=== PATIENT | female | born 1940 | race Caucasian/White ===

== ENCOUNTER 2019-03-16 07:44 | Observation (INO) ==
[2019-03-16 08:07] LABS: BUN/Creatinine Ratio 24.5 (9.0-21.6); Blood Urea Nitrogen 46 mg/dL (3-23); Calcium * 8.7 mg/dL (7.9-10.9); Carbon Dioxide 22.7 mmol/L (24-32.6); Chloride 88 mmol/L (97-106); Glucose * 115 mg/dL (70-110); Potassium 4.7 mmol/L (3.4-4.6); Sodium 123 mmol/L (132-142)
[2019-03-18] MEDS: NORMAL SALINE 1,000 ML IV PRN (17:36)
--- NOTE | 2019-03-18 20:09 | HP ---
Chief Complaint - Chief Complaint Date of Service: 03/18/19 Time of Service: 19:30 Chief Complaint: Weakness, edema, atrial fib with RVR, hyponatremia History of Present Illness: Mrs. Reyes is a new patient to me whom I saw first on Saturday. She has significant nonpitting edema in her lower extremities. She and her report that she has been losing weight and has been anorexic. She has a history of alcohol abuse that was long-standing. She has not had any alcohol in about 2 weeks and has not had any withdrawal symptoms. Her office laboratory work initially showed her sodium was 125 but her chest x-ray showed pulmonary vascular congestion with pulmonary effusions consistent with congestive heart failure. I diuresed her with 40 mg of furosemide daily for 4 days. Her EGFR dropped from 56-28. There was no change in her edema appearance and in fact her weight in the office actually went up some. The acute kidney injury is no doubt due to the diuresis attempt. I have brought her in to give her some IV fluids. She is in atrial fib with RVR. I am concerned that she may have an abdominal malignancy but cannot give her IV contrast because of her renal status. I will get a CT scan tomorrow without IV contrast but with oral contrast. Medical History (Updated 03/17/19 @ 17:33 by Papo Quezada DO) Hepatic failure (Acute) The liver enzymes have been elevated with transaminases and alkaline phosphatase being high. The bilirubin is normal. Hepatic ultrasound shows a homogenous textured liver. Giving her history of alcohol abuse I would expected nodular cirrhosis but it is not apparent on ultrasound. No tumors or metastatic findings are present on ultrasound. MI (acute kidney injury) (Acute) 4 days ago the EGFR was 52 and is now 28. I did start her on furosemide 40 mg p.o. daily 4 days ago. Her sodium has dropped from 125-123. She has anasarca with nonpitting edema below the knees. Potassium is 4.7. Surprisingly her total protein and serum albumin levels are normal. The CBC is normal and there is no anemia. Edema due to congestive heart failure (Acute) CHF NYHA class II (symptoms with moderately strenuous activities) (Acute) Atrial fibrillation with RVR (Acute) Edema (Acute) Vitamin D deficiency (Chronic) Hypothyroidism (Chronic) Hyperlipemia (Chronic) Hypertensive crisis (Acute) CHF (congestive heart failure) (Chronic) CAD (coronary artery disease) (Chronic) History of myocardial infarction (Chronic) Hypertension (Chronic) Non-compliant patient per dr [facility] Surgical History: Surgical History (Updated 03/11/19 @ 10:50 by Marleni Rae LPN) Coronary angioplasty status History of heart artery stent Family History: Family History (Updated 03/11/19 @ 10:41 by Marleni Rae LPN) Mother Unknown family medical history Obesity Father , age 86 Old age Other Family history non-contributory Social History: (Last Reviewed 03/18/19 @ 19:03 by Sammi Higgins RN) Social History: Marital status: household members: spouse current occupational status: retired Highest education level completed: 10th grade Tobacco: Smoking Status: Never smoker Alcohol: alcohol intake: never Alcohol type: wine alcohol intake frequency: holiday/special occasion Substance Use: substance use type: does not use Dietary Habits: caffeine: Yes Pets: pets and animals: dog(s) Review Of Systems (GEN) - Review of Systems Generalized/Overall Review: Present: Weakness, Malaise, Fatigue, Weight loss EENTM: Present: No Symptoms Reported Respiratory: Present: Shortness of Breath - With exertion Cardiac: Present: No Symptoms Reported Abdominal: Present: Nausea, Abdominal Pain, Other Genitourinary: Present: No Symptoms Reported - Anorexia Musculoskeletal: Present: No Symptoms Reported Neurological: Present: Weakness Skin: Present: No Symptoms Reported Endocrine: Present: No Symptoms Reported, Intolerance to Cold Immunizations: IMMUNIZATION HX Immunizations Up to Date Yes History of Influenza Vaccine No Hx Pneumococcal Vaccination More Information Required Allergies/Adverse Reactions: Allergies Allergy/AdvReac Type Severity Reaction Status Date / Time No Known Allergies Allergy Verified 03/17/19 16:04 Home Medications: HOME MEDICATIONS aspirin 81 mg tablet,delayed release 81 mg PO DAILY 03/11/19 [Last Taken Unknown] atorvastatin 80 mg tablet 80 mg PO DAILY #90 tab 03/11/19 [Last Taken Unknown] clopidogrel 75 mg tablet 75 mg PO DAILY #90 tab 03/11/19 [Last Taken Unknown] furosemide 40 mg tablet 40 mg PO DAILY #30 tab 03/11/19 [Last Taken Unknown] losartan 50 mg tablet 50 mg PO DAILY #90 tab 03/11/19 [Last Taken Unknown] metoprolol tartrate 25 mg tablet 50 mg PO BID #90 tab 03/11/19 [Last Taken Unknown] Exam - Exam Vital Signs: Vital Signs - Last Taken Temp 36.4 C 03/18/19 18:51 Pulse 134 H 03/18/19 18:51 Resp 18 03/18/19 18:51 BP 119/74 03/18/19 18:51 Pulse Ox 100 03/18/19 18:51 Constitutional: Present: Alert, Oriented x3, Cooperative, Well developed, Well nourished, Mild distress ENT Exam: Present: normal ENT inspection Eye Exam: bilateral eye: normal inspection, PERRL, EOMI Neck: Present: non-tender, full range of motion, supple Back Exam: Present: normal inspection, no CVA tenderness, no vertebral tenderness Breasts: Present: Exam deferred Respiratory: Present: rales, No wheezing Cardiovascular/Chest: Present: tachycardia, irregularly irregular Peripheral Pulses: carotid (R): 2+, carotid (L): 2+, radial (R): 2+, radial (L): 2+ Abdomen: Present: Normal bowel sounds, soft, nondistended, tender - Left lower quadrant /Rectal: Present: Exam deferred Extremity: Present: lower extremity edema - Nonpitting, swelling Skin Exam: Present: normal color, warm/dry, no cyanosis Lymphatic: Present: no adenopathy Neurologic: Present: enterprise software developer II-XII nml as tested Appearance: Present: appropriate appearance, appropriate insight, neat, impaired insight Eye contact: Present: cooperative, good eye contact, normal speech Thoughts: Present: normal thought pattern, no apparent hallucination Diagnostic Studies: Laboratory Results Sodium 123 mmol/L (132-142) L 03/16/19 07:48 123 mmol/L (130-142) L 03/16/19 07:48 Potassium 4.7 mmol/L (3.4-4.6) H D 03/16/19 07:48 Chloride 88 mmol/L (97-106) L 03/16/19 07:48 Carbon Dioxide 22.7 mmol/L (24-32.6) L 03/16/19 07:48 17.0 mmol/L (6.8-13.8) H 03/16/19 07:48 BUN 46 mg/dL (3-23) H D 03/16/19 07:48 1.88 mg/dL (0.4-1.4) H D 03/16/19 07:48 Est GFR (Non-Af Amer) 28 mL/min (60-130) L D 03/16/19 07:48 24.5 (9.0-21.6) H 03/16/19 07:48 115 mg/dL (70-110) H 03/16/19 07:48 Calcium 8.7 mg/dL (7.9-10.9) 03/16/19 07:48 Assessment/Plan - Narrative Narrative: 1. Rehydrate gradually through the night and recheck lab tomorrow morning to see if the MI is reversed. 2. CT of the abdomen with oral contrast only tomorrow morning 3. Start Lanoxin IV 0.25 mg twice 1 dose now and repeat at 2 AM 4. Continue home meds including metoprolol 50 mg twice daily 5. Echocardiogram tomorrow - Assessment/Plan (1) Hyponatremia Problem: Acute (2) MI (acute kidney injury) Problem: Acute (3) Atrial fibrillation with RVR Problem: Acute (4) Edema Problem: Acute Qualifiers: Edema type: generalized Qualified Code(s): R60.1 - Generalized edema (5) CHF (congestive heart failure) Problem: Chronic Qualifiers: Heart failure type: high output Qualified Code(s): I50.83 - High output heart failure
[2019-03-18] MEDS: METOPROLOL TARTRATE 25 MG TABLET PO SCH (20:41)
[2019-03-18] MEDS: DIGOXIN 0.25 MG/ML AMPUL IV SCH (20:41)
[2019-03-19] MEDS: NORMAL SALINE 1,000 ML IV PRN ×2 (00:50→11:25)
[2019-03-19] MEDS ORDERED: DIGOXIN 0.25 MG/ML AMPUL IV ONE (02:00)
[2019-03-19] MEDS: DIGOXIN 0.25 MG/ML AMPUL IV SCH ×3 (02:25→17:21)
[2019-03-19] MEDS ORDERED: DIATRIZOATE MEGLUMINE, SODIUM 30 ML BTL PO ONE (05:29)
[2019-03-19 05:39] LABS: Hematocrit 42.4 % (37.0-47.0); Mean Cell Volume 99.8 fl (78-100); Mean Corpuscular Hemoglobin 32.9 pg (27-31); Mean Platelet Volume 10.9 fl (8-12.5); Neutrophil # 5.5 K/mm3 (1.3-6.0); Neutrophil % 65.2 % (42-75.0); Platelet Count 159 K/mm3 (150-450); Red Blood Count 4.25 M/mm3 (4.2-5.4); Red Cell Distribution Width 15.4 % (11.5-14.0); White Blood Count 8.4 K/mm3 (4.0-10.5)
[2019-03-19 06:02] LABS: BUN/Creatinine Ratio 27.2 (9.0-21.6); Carbon Dioxide 23.4 mmol/L (24-32.6); Potassium 4.2 mmol/L (3.4-4.6)
[2019-03-19 06:03] LABS: Anion Gap 15.8 mmol/L (6.8-13.8); Bilirubin, Total 2.3 mg/dL (0.0-1.1); Ca. Corrected For Albumin 8.7 mg/dL (8.4-10.2); Calcium * 8.2 mg/dL (7.9-10.9); Total Protein 5.6 gm/dL (6.2-8.2)
[2019-03-19] MEDS: ASPIRIN 81 MG TABLET.DR PO SCH (09:04)
[2019-03-19] MEDS: LOSARTAN POTASSIUM 50 MG TABLET PO SCH (09:05)
[2019-03-19] MEDS: CLOPIDOGREL BISULFATE 75 MG TABLET PO SCH (09:05)
[2019-03-19] MEDS: METOPROLOL TARTRATE 25 MG TABLET PO SCH (09:08)
--- NOTE | 2019-03-19 15:26 | ECHO ---
This report is available in the EMR
--- NOTE | 2019-03-19 16:31 | PN ---
Subjective - Date and Time Seen Date: 03/19/19 Time: 07:45 Subjective Narrative: Jacklyn has had an uneventful night. Her heart rate is responded nicely to Lanoxin. She has had 2 doses. The first dose was at 8 PM and the second and was at 2 AM. Heart rate is down into the 90s to 110 range this morning. Her sodium is improved and is up to 128. Plan is to continue IV normal saline. She is scheduled for a CT of the abdomen with oral contrast only had an echocar diogram today. She will have repeat labs done tomorrow morning. Also kidney function has improved with EGFR up from 28 yesterday -46 today. Objective - Review of Systems Generalized/Overall Review: Reports: Weakness, Malaise, Fatigue, Weight loss EENTM: Reports: No Symptoms Reported Respiratory: Reports: No Symptoms Reported Cardiac: Reports: No Symptoms Reported Abdominal: Reports: No Symptoms Reported Genitourinary Symptoms: Reports: No Symptoms Reported Musculoskeletal Complaints: Reports: No Symptoms Reported Neurological: Reports: No Symptoms Reported Skin: Reports: No Symptoms Reported Endocrine: Reports: No Symptoms Reported - Vitals Vitals: Last Vital Signs Temp 36.3 C 03/19/19 10:47 Pulse 107 H 03/19/19 10:47 Resp 18 03/19/19 10:47 BP 99/52 03/19/19 10:47 Pulse Ox 96 03/19/19 10:47 - Abnormal Lab Findings Abnormal Lab Findings: Abnormal Lab Results 03/19/19 03/19/19 Range/Units 05:35 05:35 MCH 32.9 H (27-31) pg RDW 15.4 H (11.5-14.0) % Immature Gran % (Auto) 0.60 H (0.001-0.429) % Immature Gran # (Auto) 0.05 H (0.000-0.0310) K/mm3 Monocytes % 10.5 H (0.0-9) % Sodium 128 L (132-142) mmol/L Plasma Sodium 128 L (130-142) mmol/L Chloride 93 L (97-106) mmol/L Carbon Dioxide 23.4 L (24-32.6) mmol/L Anion Gap 15.8 H (6.8-13.8) mmol/L BUN 31 H (3-23) mg/dL Est GFR (Non-Af Amer) 49 L D (60-130) mL/min BUN/Creatinine Ratio 27.2 H (9.0-21.6) Total Bilirubin 2.3 H (0.0-1.1) mg/dL AST 160 H (0-48) U/L ALT 831 H (19-67) U/L Alkaline Phosphatase 178 H (50-170) U/L Total Protein 5.6 L (6.2-8.2) gm/dL Albumin 3.0 L (3.4-5.0) gm/dl - EKG/Xray Findings EKG: atrial fibrillation EKG read: Interp. by me Interpretation: Reviewed by me - Exam Constitutional: Present: Alert, Oriented x3, Cooperative, Well developed, Well nourished, Mild distress ENT Exam: Present: normal ENT inspection, hearing grossly normal, pharynx normal, TMs normal Neck: Present: non-tender, limited range of motion Breasts: Present: Exam deferred Respiratory: Present: chest non-tender, lungs clear, normal breath sounds, no respiratory distress Cardiovascular/Chest: Present: tachycardia, irregularly irregular Abdomen: Present: Normal bowel sounds, soft, tender. Absent: mass palpable /Rectal: Present: Exam deferred Extremity: Present: lower extremity edema Skin Exam: Present: normal color, warm/dry, no cyanosis Lymphatic: Present: no adenopathy Neurologic: Present: resin remover II-XII nml as tested, no motor/sensory deficits, alert, normal mood/affect, oriented x 3 Appearance: Present: appropriate appearance, appropriate insight, neat, impaired insight, impaired recent memory Eye contact: Present: cooperative, good eye contact, normal speech Thoughts: Present: normal thought pattern, no apparent hallucination Assessment/Plan Plan Narrative: 1. Hyponatremia 2. Atrial fibrillation with rapid ventricular response 3. Congestive heart failure 4. Edema Plan 1. Echocardiogram today 2. CT abdomen with oral contrast only. 3. Change to p.o. Lanoxin 0.125 mg daily 4. Order dig level for tomorrow morning as well as other morning lab. 5. Anticipate discharge tomorrow. - Problems/Diagnosis (1) Hyponatremia Problem: Resolved (2) MI (acute kidney injury) Problem: Chronic (3) Atrial fibrillation with RVR Problem: Chronic (4) Edema Problem: Chronic Qualifiers: Edema type: generalized Qualified Code(s): R60.1 - Generalized edema (5) CHF (congestive heart failure) Problem: Chronic Qualifiers: Heart failure type: diastolic Heart failure chronicity: acute on chronic (6) Pancreatic mass Problem: Acute (7) CHF (congestive heart failure) Problem: Acute Qualifiers: Heart failure type: diastolic Heart failure chronicity: acute Qualified Code(s): I50.31 - Acute diastolic (congestive) heart failure
[2019-03-19] MEDS: DIGOXIN 0.125 MG TABLET PO SCH (17:19)
[2019-03-19 17:28] LABS: Urine Bilirubin Negative (NEGATIVE); Urine Blood 25 /ul (NEGATIVE); Urine Ketone Negative (NEGATIVE); Urine Nitrite Negative (NEGATIVE); Urine Protein Negative (NEGATIVE); Urine Urobilinogen Normal (NORMAL)
[2019-03-19 17:45] LABS: Urine Appearance Clear (CLEAR); Urine Bacteria 1+; Urine Color Yellow; Urine RBC 0-5 /hpf (0-5); Urine WBC 0-5 /hpf (0-5)
[2019-03-19] MEDS: CARVEDILOL 6.25 MG TABLET PO SCH (20:52)
[2019-03-19] MEDS ORDERED: METOPROLOL TARTRATE 50 MG TABLET PO SCH (21:00)
[2019-03-20 05:32] LABS: Hematocrit 44.7 % (37.0-47.0); Hemoglobin 14.5 gm/dL (12.5-16.0); Mean Cell Volume 100.2 fl (78-100); Mean Corpuscular Hemoglobin 32.5 pg (27-31); Mean Corpuscular Hgb Conc 32.4 g/dl (32-36); Mean Platelet Volume 10.8 fl (8-12.5); Neutrophil # 5.5 K/mm3 (1.3-6.0); Neutrophil % 70.4 % (42-75.0); Platelet Count 156 K/mm3 (150-450); Red Blood Count 4.46 M/mm3 (4.2-5.4); Red Cell Distribution Width 15.6 % (11.5-14.0); White Blood Count 7.9 K/mm3 (4.0-10.5)
[2019-03-20 06:06] LABS: Anion Gap 17.4 mmol/L (6.8-13.8); BUN/Creatinine Ratio 24.2 (9.0-21.6); Ca. Corrected For Albumin 8.7 mg/dL (8.4-10.2); Calcium * 8.2 mg/dL (7.9-10.9); Carbon Dioxide 24.5 mmol/L (24-32.6); Digoxin 1.7 ng/mL (0.5-2.0); Potassium 3.9 mmol/L (3.4-4.6); Total Protein 5.8 gm/dL (6.2-8.2)
--- NOTE | 2019-03-20 08:14 | DS ---
(1) Hyponatremia Problem: Resolved (2) MI (acute kidney injury) Problem: Chronic (3) Atrial fibrillation with RVR Problem: Chronic (4) Edema Problem: Chronic Qualifiers: Edema type: generalized Qualified Code(s): R60.1 - Generalized edema (5) CHF (congestive heart failure) Problem: Chronic Qualifiers: Heart failure type: diastolic Heart failure chronicity: acute on chronic (6) Pancreatic mass Problem: Acute Date of Discharge:: 03/20/19 Description of Stay: Jacklyn Reyes is a 78-year-old female who is new to me. She presented to the office with weakness and a lot of edema. She had dyspnea with exertion but not at rest. Her examination revealed that she was in atrial fibrillation with RVR with distended neck veins and a positive HJR at 90 degrees. She had nonpitting edema to the thighs bilaterally. Her heart rate in the office was about 150 bpm. I started her on oral furosemide 40 mg daily. She took 4 doses and then came back to the office and was not improved. Her EGFR had dropped from 46-28 and she had actually gained weight in the interim. So she had an acute kidney injury from the brief use of diuretics. I elected to admit her to the hospital. She received 1 L of normal saline at bolus rate and then continued at 125 cc/h thereafter until last evening when I saline lock the IV and DC the IV fluids. Her sodium has increased from 123 08/29/1935 this morning. Her lungs are clear and she does not have tachypnea. She remains in atrial fibrillation with mild RVR with heart rate in the 100-1 05 range. Her blood pressure has been satisfactory. 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 There does not appear to be any ischemic cardiomyopathy. Her ejection fraction is about 37%. She also had reported to me a loss of appetite, early satiety, some abdominal discomfort, and weight loss of about 30 pounds over the past 2 months. Examination of the abdomen does not reveal a mass. I did do a CT scan without IV contrast but with oral contrast yesterday and this shows the pancreas to have a suspicious lesion in the middle of the pancreatic body and most favors a pancreatic cancer. Now that her renal status has improved I will consider doing a CT with IV contrast next week. An MRI with contrast is also an option. If her renal status will not allow contrast material then I will refer her to the [facility] to the digestive diseases section for ERCP and pancreatic biopsy. Procedures Performed: see notes below - CT of the abdomen with oral contrast only, echocardiography Results and Findings: Lab Pending Results 03/16/19 07:48: Sodium 123 L, Plasma Sodium 123 L, Potassium 4.7 H D, Chloride 88 L, Carbon Dioxide 22.7 L, Anion Gap 17.0 H, BUN 46 H D, Creatinine 1.88 H D, Est GFR (Non-Af Amer) 28 L D, BUN/Creatinine Ratio 24.5 H, Random Glucose 115 H, Calcium 8.7 03/18/19 19:45: Magnesium 2.0 03/19/19 05:35: WBC 8.4, RBC 4.25, Hgb 14.0, Hct 42.4, MCV 99.8, MCH 32.9 H, MCHC 33.0, RDW 15.4 H, Plt Count 159, MPV 10.9, Immature Gran % (Auto) 0.60 H, Immature Gran # (Auto) 0.05 H, Neutrophils % 65.2, Lymphocytes % 22.5, Monocytes % 10.5 H, Eosinophils % 0.8, Basophils % 0.4, Nucleated RBC % 0.0, Neutrophils # 5.5, Lymphocytes # 1.89, Monocytes # 0.9, Eosinophils # 0.1, Absolute Basophils 0.0 03/19/19 05:35: Sodium 128 L, Plasma Sodium 128 L, Potassium 4.2, Chloride 93 L, Carbon Dioxide 23.4 L, Anion Gap 15.8 H, BUN 31 H, Creatinine 1.14, Est GFR (Non-Af Amer) 49 L D, BUN/Creatinine Ratio 27.2 H, Random Glucose 102, Calcium 8.2, Calcium Adj for Albumin 8.7, Total Bilirubin 2.3 H, AST 160 H, ALT 831 H, Alkaline Phosphatase 178 H, Total Protein 5.6 L, Albumin 3.0 L 03/19/19 17:21: Urine Color Yellow, Urine Appearance Clear, Urine pH 6.0, Ur Specific [place] 1.010, Urine Protein Negative, Urine Glucose (UA) Negative, Urine Ketones Negative, Urine Blood 25 H, Urine Nitrate Negative, Urine Bilirubin Negative, Urine Urobilinogen Normal, Ur Leukocyte Esterase 75 H, Urine RBC 0-5, Urine WBC 0-5, Ur Epithelial Cells 0-5, Urine Bacteria 1+ H 03/20/19 05:24: WBC 7.9, RBC 4.46, Hgb 14.5, Hct 44.7, MCV 100.2 H, MCH 32.5 H, MCHC 32.4, RDW 15.6 H, Plt Count 156, MPV 10.8, Immature Gran % (Auto) 0.40, Immature Gran # (Auto) 0.03, Neutrophils % 70.4, Lymphocytes % 16.3 L, Monocytes % 11.5 H, Eosinophils % 1.0, Basophils % 0.4, Nucleated RBC % 0.0, Neutrophils # 5.5, Lymphocytes # 1.28 L, Monocytes # 0.9, Eosinophils # 0.1, Absolute Basophils 0.0 03/20/19 05:24: Sodium 137, Plasma Sodium 137, Potassium 3.9, Chloride 99, Carbon Dioxide 24.5, Anion Gap 17.4 H, BUN 30 H, Creatinine 1.24, Est GFR (Non- Af Amer) 45 L, BUN/Creatinine Ratio 24.2 H, Random Glucose 102, Calcium 8.2, Calcium Adj for Albumin 8.7, Total Bilirubin 2.0 H, AST 96 H, ALT 639 H, Alkaline Phosphatase 175 H, Total Protein 5.8 L, Albumin 3.0 L, Digoxin 1.7 Discharge Location: Home Disposition: Home self-care Condition: Serious Face to Face Encounter completed per [facility] Guidelines: No Discharge Activity: Activity as tolerated Discharge Diet: General/regular food Referrals: Papo Quezada DO [Primary Care Provider] - Additional Patient Instructions (free text): -Please make TCM appointment unless shelter discharge, or if following up with outside provider. Thank you! Babita @ [phone] or [place] at [address]. Complete Home Medications List: Complete Home Medication List: aspirin 81 mg tablet,delayed release 81 mg PO DAILY 03/11/19 clopidogrel 75 mg tablet 75 mg PO DAILY #90 tab 03/11/19 losartan 50 mg tablet 50 mg PO DAILY #90 tab 03/11/19 Carvedilol [Coreg] 6.25 mg PO BID #60 tab 03/20/19 Digoxin [Lanoxin] 0.125 mg PO DAILY #30 tab 03/20/19
[2019-03-20] MEDS: CLOPIDOGREL BISULFATE 75 MG TABLET PO SCH (09:59)
[2019-03-20] MEDS: CARVEDILOL 6.25 MG TABLET PO SCH (09:59)
[2019-03-20] MEDS: ASPIRIN 81 MG TABLET.DR PO SCH (09:59)
[2019-03-20] MEDS: DIGOXIN 0.125 MG TABLET PO SCH (09:59)
[2019-03-20] MEDS: LOSARTAN POTASSIUM 50 MG TABLET PO SCH (09:59)
[2019-03-20 12:46] VITALS: BP 98/61
== END 2019-03-20 12:41 | disposition home or self-care (01) ==
LOC: RAD 07:44 → MS 07:44 → RAD 07:45
PROVIDERS: ADMIT Family Medicine; ATTEND Family Medicine
DX: N17.9 Acute kidney failure, unspecified; I50.9 Heart failure, unspecified; I48.91 Unspecified atrial fibrillation; E87.1 Hypo-osmolality and hyponatremia; R60.9 Edema, unspecified
CPT/HCPCS: 36415; 74176; 76700; 80048; 80053; 80162; 81001; 83735; 85025; 93005; 93306; 96361; 96374; 96375; 97116; 97161; G0378; G0379; Q9963